=== PATIENT | female | born 1990 | race Caucasian/White ===

== ENCOUNTER 2018-09-10 02:27 | Emergency (ER) | payer OTHER ==
--- NOTE | ~2018-09-10 | EKG ---
[place], [place] ELECTROCARDIOGRAM REPORT NAME: VALENTINO GÓMEZ UNIT #: [id number] ROOM: DOCTOR: EPIPHANY DRAFT REPORT BIRTHDATE: [birth year] [facility] Test Date: 2018-09-10 Test Time: 03:40:06 Pat Name: VALENTINO GÓMEZ Department: Room: Gender: F [employer]: : 1990 Requested By: ROSE QUINTANA Order Number: [id number] Reading MD: Wong Reagan Measurements Intervals [place] Rate: 99 P: 69 W[place]: 171 QRS: 65 QRSD: 118 T: 67 QT: 379 QTc: 487 Interpretive Statements Sinus rhythm Ventricular premature complex Aberrant conduction of SV complex(es) Probable left atrial enlargement Nonspecific intraventricular conduction delay No previous ECG available for comparison Electronically Signed On 09-16-2018 11:51:40 PST by Wong Reagan CM:EKGRPT:ELECTROCARDIOGRAM REPORT [id number] ROSE OLIVEIRA DRAFT REPORT ROSE QUINTANA MD
[2018-09-10 02:57] LABS: BASO # 0.1 10*3/uL (0.0-0.1); BASO % 0.5 % (0.0-1.0); EOS # 0.2 10*3/uL (0.0-0.4); EOS % 1.6 % (1.0-4.0); HEMATOCRIT 37.3 % (37.0-47.0); HEMOGLOBIN 12.6 g/dl (12.0-16.0); LYMPH # 4.3 10*3/uL (1.3-4.4); LYMPH % 44.7 % (27.0-41.0); MEAN CELL VOLUME 85.6 fl (81.0-99.0); MEAN CORPUSCULAR HGB 28.9 pg (27.0-31.0); MEAN CORPUSCULAR HGB CONC 33.8 g/dl (33.0-37.0); MEAN PLATELET VOLUME 11.2 fl (9.6-12.3); MONO # 0.7 10*3/uL (0.1-1.0); MONO % 7.1 % (3.0-9.0); NEUT # 4.4 10*3/uL (2.3-7.9); NEUT % 45.8 % (47.0-73.0); PLATELET COUNT AUTOMATED 249 10*3/uL (130-400); RED BLOOD COUNT 4.36 10*6/uL (4.10-5.10); RED CELL DISTRI WIDTH 13.2 % (0-14.5); WHITE BLOOD COUNT 9.6 10*3/uL (4.8-10.8)
[2018-09-10 03:14] LABS: ALBUMIN 3.4 gm/dl (3.1-4.5); ALKALINE PHOSPHATASE 70 U/L (45-117); BETA-HCG, QUANT < 1.0 mIU/mL (1-3); BUN 18 mg/dl (7-24); CHLORIDE 107 mmol/L (98-107); CREATININE 1.05 mg/dL (0.55-1.02); LIPASE 94 U/L (73-393); POTASSIUM 2.8 mmol/L (3.5-5.1); SGOT/AST 49 IU/L (3-35); SGPT/ALT 31 U/L (12-78); SODIUM 140 mmol/L (136-145); TROPONIN I < 0.015 ng/ml (<0.045)
[2018-09-10 04:11] LABS: URINE AMPHETAMINES < 1000 (1000ng/ml); URINE BARBITURATES < 200 (200ng/ml); URINE BENZODIAZEPINES < 200 (200ng/ml); URINE CANNABINOIDS (THC) < 50 (50ng/ml); URINE COCAINE < 300 (300ng/ml); URINE METHADONE < 300 (300ng/ml); URINE OPIATES < 300 (300ng/ml); URINE PHENCYCLIDINE < 25 (25ng/ml)
== END 2018-09-10 07:56 | disposition home or self-care (01) ==
LOC: ED 02:27
PROVIDERS: Emergency Medicine Emergency Medical Services
DX: F10.10 Alcohol abuse, uncomplicated (principal); F41.9 Anxiety disorder, unspecified; R20.0 Anesthesia of skin; R11.2 Nausea with vomiting, unspecified; Y90.6 Blood alcohol level of 120-199 mg/100 ml